=== PATIENT | male | born 1975 | race Caucasian/White ===

== ENCOUNTER 2020-02-29 11:40 | Day surgery (SDC) | payer OTHER, SELFPAY ==
[2020-02-28 09:53] VITALS: BMI 21.9
--- NOTE | 2020-02-28 10:01 | P.CONAN_ITS ---
HPI - Anesthesia Eval Consult details Narrative: 44yo M for [facility] Past Medical History Medical History Anxiety Vertigo Surgical History Surgical History History of arthroscopy of both knees History of elbow surgery Social History Social History Are you a primary customer care coordinator to a significant other at home: No Do you presently have visiting nurse or other home services: No Smoking Status: Current every day smoker Smoked in Last 30 Days: Yes Patient Interested in Nicotine Replacement: No Patient Given Instructions on How to Stop Smoking: No Second Hand Smoke Exposure: No Use of substances other than those prescribed or required for medical reasons: Yes Substance Use Frequency: Occasionally Have you been hit, kicked, punched, or otherwise hurt by someone within the past year? If so, by whom?: No Advance Directives: No Advance Directives Information Provided: Yes Advance Directives on File: No Recently lost weight without trying: No Meds Allergies Allergy/AdvReac Type Severity Reaction Status Date / Time No Known Allergies Allergy Unverified 02/09/20 19:21 [No Known Allergies*] Exam Exam Date and Time: February 28, 2020 1001 Height,Weight and Vital Signs: Height 5 ft 7 in Weight 63.503 kg
--- NOTE | 2020-02-28 10:04 | P.CONAN_ITS ---
Documented by User: Vicky Wolf 02/28/20 10:06 [facility] Past Medical History Medical History Anxiety Vertigo Surgical History Surgical History History of arthroscopy of both knees History of elbow surgery Social History Social History Are you a primary managed care provider to a significant other at home: No Do you presently have visiting nurse or other home services: No Smoking Status: Current every day smoker Smoked in Last 30 Days: Yes Patient Interested in Nicotine Replacement: No Patient Given Instructions on How to Stop Smoking: No Second Hand Smoke Exposure: No Use of substances other than those prescribed or required for medical reasons: Yes Substance Use Frequency: Occasionally Have you been hit, kicked, punched, or otherwise hurt by someone within the past year? If so, by whom?: No Advance Directives: No Advance Directives Information Provided: Yes Advance Directives on File: No Recently lost weight without trying: No Meds Allergies Allergy/AdvReac Type Severity Reaction Status Date / Time No Known Allergies Allergy Verified 02/29/20 11:47 [No Known Allergies*] Exam Exam Date and Time: February 28, 2020 1004 Height,Weight and Vital Signs: Height 5 ft 7 in Weight 63.503 kg Documented by User: Rosamaria Rodriguez 02/29/20 12:34 [facility] Past Medical History Medical History Anxiety Vertigo Surgical History Surgical History History of arthroscopy of both knees History of elbow surgery Social History Social History Are you a primary managed care provider to a significant other at home: No Do you presently have visiting nurse or other home services: No Smoking Status: Current every day smoker Smoked in Last 30 Days: Yes Patient Interested in Nicotine Replacement: No Patient Given Instructions on How to Stop Smoking: No Second Hand Smoke Exposure: No Use of substances other than those prescribed or required for medical reasons: Yes Substance Use Frequency: Occasionally Have you been hit, kicked, punched, or otherwise hurt by someone within the past year? If so, by whom?: No Advance Directives: No Advance Directives Information Provided: Yes Advance Directives on File: No Recently lost weight without trying: No Meds Allergies Allergy/AdvReac Type Severity Reaction Status Date / Time No Known Allergies Allergy Verified 02/29/20 11:47 [No Known Allergies*] Exam Airway Mallampati Class: II TM Dist: >3cm Neck ROM: Full Heart: rrr Lungs: cta Assessment and Plan Assessment Anesthesia Assessment: Anesthesia Plan Discussed and Smoking Cess. Discussed Final Anesthetic Review NPO: Yes ASA Class: II Final Preanesthetic Review: No Changes in Pt Med Stat, Meds & Allergies Reviewed, Consent Obtained/Reviewed, Med/Surg/Anes Hx Reviewed, Last Cigarette (If Appl.) and Anes Risks/Benef Reviewed Patient Risk: Low Procedure Risk: Low Assessment/Block/Sedation in SS: Assess/Block/Sedation-SS Anesthetic Plan Anesthetic Plan: GA and Regional Block Disposition: Standard PACU
[2020-02-29] VITALS (8 sets, daily range): BP systolic 137–168; BP diastolic 86–101; PULSE 63–96; RESP 16–18; TEMP 36.2–36.7; O2SAT 96–98
--- NOTE | 2020-02-29 12:16 | MHC.SHP ---
Pre-Procedural Eval Section A The patient is an INPATIENT: No Changes since office visit: No Cold of Flu in the past 2 weeks, No New Medical Problems, No Changes in Medication and No Patient answered all questions The History & Physical has been completed within 30 days and I have reviewed it.: Yes Section B Chief Complaint: RIGHT ELBOW FX Allergies: Allergies Allergy/AdvReac Type Severity Reaction Status Date / Time No Known Allergies Allergy Verified 02/29/20 11:47 [No Known Allergies*] Plan Patient has been examined and remains a candidate for the planned procedure
--- NOTE | 2020-02-29 12:23 | FL_ITS ---
EXAMINATION: XR FLUOROSCOPY CLINICAL INFORMATION: Right olecranon fracture. COMPARISON: Radiograph dated 02/16/2020 TECHNIQUE: AP and lateral spot images of the right elbow were submitted from the ORIF performed by Dr. Everett. FLUOROSCOPY TIME: 0.6 minutes DOSE AREA PRODUCT: 0.0381 mGy-m2 (milligray-meter squared) FINDINGS/IMPRESSION: The olecranon fracture fragment has been successfully reduced. 2 K wires and a cerclage wire are present, holding the fracture fragment in place. 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
[2020-02-29] MEDS: Lactated Ringers 1,000 ML 100 ML IVCONT (12:34)
[2020-02-29] MEDS: ceFAZolin Sodium/Dextrose,Iso 2 GM/50 ML PIGGYBACK IV (12:35)
--- NOTE | 2020-02-29 14:30 | PM.OP ---
Brief Operative Note Date of procedure: 02/29/20 Pre-op diagnosis: right olecranon fracture Post-op diagnosis: same Procedure: orif right olecranon Implants: .65 k wire x 2 and .68 tension band Surgeon: Olegario Everett MD Anesthesia: GETA, MAC and regional Estimated blood loss (mL): 10 Tourniquet time (min): 40 IV fluids (mL): 800 Pathology: none sent Condition: stable
[2020-02-29] MEDS: Acetaminophen 325 MG TABLET 650 MG PO (14:52)
--- NOTE | 2020-02-29 21:57 | OP_ITS ---
SURGEON: Olegario Everett MD INDICATIONS: This is a 44-year-old gentleman, who sustained a displaced olecranon fracture and was consented to undergo operative fixation. PREOPERATIVE DIAGNOSIS: Right olecranon fracture. POSTOPERATIVE DIAGNOSIS: Right olecranon fracture. PROCEDURE PERFORMED: ORIF, right olecranon. ESTIMATED BLOOD LOSS: 10 mL. COMPLICATIONS: None. ANESTHESIA: MAC and regional. ASSISTANTS: None. SPECIMENS: IMPLANTS: 0.65 K-wire and 0.68 tension band. TOURNIQUET TIME: 40 minutes. FLUIDS: 800. PROCEDURE IN DETAIL: The patient was brought to the operating room and placed in the supine position. He was prepped and draped in standard sterile fashion and a tourniquet was insufflated to 250 mmHg. A time-out was called to identify proper site, proper procedure, proper surgeon prior to this, and IV antibiotics per weight was administered. I began by making a midline incision over the posterior aspect of the olecranon and ulna. Sharp dissection was taken down to bone and 2 full-thickness flaps were developed. The fracture was displaced significantly and I cleaned up the fracture fragments using a curette and rongeur and irrigation. Care was taken to avoid the ulnar nerve. Once this was done, I took 2 sharp tenaculums and reduced the fracture. Biplanar fluoroscopy was confirmed this. I then placed two 0.68 tension wires from posterior to anterior and proximal to distal across the fracture site. With this, we had about approximately 45 degree angle and I was happy with the appearance of this. On biplanar fluoroscopy, they were interosseous at all times. I then drilled distally into the ulnar shaft, a transverse tunnel, and passed my tension wire through that. I then wrapped the tension wire around the proximal K-wires and tightened it on both ends. This compressed the fracture and I was able to flex and extend the elbow without any fracture displacement. The extraneous metal was removed and curved into the soft tissue. Once this was done, I irrigated copiously and closed with absorbable suture and renetta. The patient was placed into a sterile dressing, extubated, and brought to recovery room in stable condition. There were no known complications. MD MANUEL Khan/SASHA / [id number]
== END 2020-02-29 16:05 | disposition home or self-care (01) ==
PROVIDERS: Orthopaedic Surgery; PCP Hospitalist; Visit Provider Internal Medicine
PROC: (CPT 24685; principal; 2020-02-29 12:00)
DX: S52.021A Displaced fracture of olecranon process without intraarticular extension of right ulna, initial encounter for closed fracture (principal); W17.89XA Other fall from one level to another, initial encounter; Y93.9 Activity, unspecified; Y92.9 Unspecified place or not applicable; Y99.9 Unspecified external cause status
CPT/HCPCS: 24685; C1713; J0690; J1100; J2250; J2405; J3010

== ENCOUNTER 2020-03-13 13:09 | Outpatient (REF) | payer OTHER, SELFPAY ==
--- NOTE | 2020-03-13 14:01 | XR_ITS ---
EXAMINATION: XR ELBOW, RIGHT CLINICAL INFORMATION: Fracture COMPARISON: Previous x-rays most recent 02/29/2020 TECHNIQUE: Two views of the right elbow. FINDINGS: There is ORIF of the olecranon fracture with anatomic alignment. There arthritis at the humeral radial head articulation. There are osteophytes along the posterior olecranon. There is no joint effusion. There are posterior skin renetta. IMPRESSION: ORIF of the olecranon fracture with anatomic alignment. Arthritis at the elbow joint.
== END 2020-03-13 13:10 | disposition home or self-care (01) ==
LOC: HO.XRAY 13:09
PROVIDERS: Visit Provider Physician Assistant
DX: S52.023D Displaced fracture of olecranon process without intraarticular extension of unspecified ulna, subsequent encounter for closed fracture with routine healing (principal)
CPT/HCPCS: 73070; 99212

== ENCOUNTER 2020-04-02 13:20 | Outpatient (REF) | payer OTHER, SELFPAY ==
--- NOTE | 2020-04-02 13:56 | XR_ITS ---
EXAMINATION: XR ELBOW, RIGHT CLINICAL INFORMATION: Displaced fracture of the olecranon COMPARISON: 12/12/2019 TECHNIQUE: AP, lateral, and oblique views of the right elbow. FINDINGS: There is a cerclage wire with 2 K wires transfixing the olecranon. Alignment is anatomic. No acute fracture is seen. Corticated ossification adjacent to the radial head. Osteophyte formation along the elbow. Normal joint effusion. Tiny radiopaque densities are seen in the dorsal superficial soft tissues of the elbow. XR/XR elbow RT min 3V IMPRESSION: Intact hardware at the olecranon. No fracture line seen. Appropriate alignment. Arthritic changes.
== END 2020-04-02 13:21 | disposition home or self-care (01) ==
LOC: HO.HOSX 13:20
PROVIDERS: Visit Provider Physician Assistant
DX: S52.023D Displaced fracture of olecranon process without intraarticular extension of unspecified ulna, subsequent encounter for closed fracture with routine healing (principal)
CPT/HCPCS: 73080; 99212

== ENCOUNTER 2020-04-25 09:00 | Outpatient (RCR) | payer OTHER, SELFPAY | END 2020-05-17 08:49 | disposition home or self-care (01) | LOC: HO.OT 09:00 | PROVIDERS: Visit Provider Physician Assistant | DX: S52.023D Displaced fracture of olecranon process without intraarticular extension of unspecified ulna, subsequent encounter for closed fracture with routine healing (principal) | CPT/HCPCS: 29105; 97110; 97140; 97165; 97760 ==

== ENCOUNTER 2020-04-27 09:30 | Outpatient (REF) | payer OTHER, SELFPAY ==
--- NOTE | 2020-04-27 09:42 | XR_ITS ---
EXAMINATION: XR ELBOW, RIGHT CLINICAL INFORMATION: Follow-up olecranon fracture. COMPARISON: Prior radiographs, most recently 04/02/2020. TECHNIQUE: AP and lateral views of the right elbow. FINDINGS: A cerclage wire and 2 orthopedic pins transfix a known right olecranon fracture, which is in stable alignment. A persistent fracture line is seen on the lateral view. Enthesophytes are again seen of the radial head. There is no joint effusion. Tiny punctate foreign bodies are again seen in the posterior soft tissues. XR/XR elbow RT 2V IMPRESSION: There is stable alignment of a right olecranon fracture. No hardware failure or loosening is seen. There is no right elbow joint effusion.
== END 2020-04-27 09:31 | disposition home or self-care (01) ==
LOC: HO.HOSX 09:30
PROVIDERS: Visit Provider Orthopaedic Surgery
DX: S52.023D Displaced fracture of olecranon process without intraarticular extension of unspecified ulna, subsequent encounter for closed fracture with routine healing (principal)
CPT/HCPCS: 73070; 99212

== ENCOUNTER 2020-05-01 12:07 | Day surgery (SDC) | payer OTHER, SELFPAY ==
[2020-05-01] VITALS (12 sets, daily range): BP systolic 142–184; BP diastolic 89–109; PULSE 67–81; RESP 20; TEMP 36.8–37; O2SAT 96–100; BMI 25.0
--- NOTE | 2020-05-01 11:43 | MHC.SHP ---
Pre-Procedural Eval Section A The patient is an INPATIENT: No Changes since office visit: Yes Cold of Flu in the past 2 weeks, Yes New Medical Problems and Yes Changes in Medication The History & Physical has been completed within 30 days and I have reviewed it.: Yes Section B Chief Complaint: presence of functional implant Allergies: Allergies Allergy/AdvReac Type Severity Reaction Status Date / Time No Known Allergies Allergy Verified 04/27/20 10:40 [No Known Allergies*] Plan Patient has been examined and remains a candidate for the planned procedure
[2020-05-01] MEDS: ceFAZolin Sodium/Dextrose,Iso 2 GM/50 ML PIGGYBACK IV (12:54)
--- NOTE | 2020-05-01 13:23 | FL_ITS ---
EXAMINATION: XR FLUOROSCOPY WITH IMAGES CLINICAL INFORMATION: Hardware removal right elbow. COMPARISON: Right elbow 04/27/2020 TECHNIQUE: Fluoroscopy performed by Marguerite alcazar Fluoroscopy time: 1.37) minutes DAP: 2349 mGycm2 Images: 1 FINDINGS: The solitary nail and cerclage wire through the olecranon process has been removed. The fracture through the olecranon has healed. A small loose body anterior to radial head is unchanged. FL/FL guidance in OR IMPRESSION: Hardware through the olecranon process has been removed. The olecranon fracture has healed.
--- NOTE | 2020-05-01 13:30 | P.CONAN_ITS ---
[facility] Past Medical History Medical History Anxiety Vertigo Surgical History Surgical History History of arthroscopy of both knees History of elbow surgery (~03/10/20) Social History Social History Smoking Status: Current every day smoker Second Hand Smoke Exposure: No Use of substances other than those prescribed or required for medical reasons: No Advance Directives: No Advance Directives Information Provided: Yes Meds Allergies Allergy/AdvReac Type Severity Reaction Status Date / Time No Known Allergies Allergy Verified 04/27/20 10:40 [No Known Allergies*] Home Medications Medication Instructions Recorded Confirmed Type No Known Home Meds 04/27/20 04/27/20 History Exam Exam Date and Time: May 01, 2020 1330 Height,Weight and Vital Signs: Height 5 ft 7 in Weight 72.575 kg Airway Mallampati Class: II TM Dist: >3cm Neck ROM: Full Denture: Upper and Lower Loose/Missing/Broken Teeth: No Heart: rrr Lungs: nl Other: ao Assessment and Plan Assessment Anesthesia Assessment: Anesthesia Plan Discussed and Chart Reviewed Final Anesthetic Review NPO: Yes ASA Class: II Final Preanesthetic Review: No Changes in Pt Med Stat, Meds/Allgs Chart Reviewed, Consent Obtained/Reviewed and Anes Risks/Benef Reviewed Patient Risk: Low Procedure Risk: Low Anesthetic Plan Anesthetic Plan: GA Disposition: Standard PACU
--- NOTE | 2020-05-01 14:22 | PM.OP ---
Brief Operative Note Date of Service: 05/01/20 Pre-op diagnosis: retained orthopaedic hardware right elbow Post-op diagnosis: same Procedure: removal of hardware right elbow Implants: none Surgeon: Olegario Everett MD Anesthesia: GLMA and local Estimated blood loss (mL): 10 Tourniquet time (min): 0 IV fluids (mL): 500 Urine output (mL): 0 Pathology: none sent Condition: stable Disposition: PACU
[2020-05-01] MEDS: HYDROmorphone HCl 0.5 MG/0.5 ML SYRINGE 0.25 MG IVPUSH ×3 (14:45→15:11)
[2020-05-01] MEDS: Acetaminophen 325 MG TABLET 650 MG PO (14:46)
--- NOTE | 2020-05-01 16:18 | PC.NURSE ---
wearing sling right, moves fingers, cms wnl, only c/o itchy nose
--- NOTE | 2020-05-02 11:58 | HO.POSTANES ---
Post Anesthesia Evaluation Post Anesthesia Evaluation Anesthesia: General LMA Mental Status: Awake Pain Control: Satisfactory Nausea/Vomiting: None Hydration: Adequate Anesthesia-Related Issues: No Anes. Related Issues
--- NOTE | 2020-05-08 10:23 | OP_ITS ---
SURGEON: Olegario Everett MD INDICATIONS: This is a 44-year-old gentleman with orthopedic elbow hardware, consented to undergo removal. PREOPERATIVE DIAGNOSIS: Retained orthopedic hardware, right elbow. POSTOPERATIVE DIAGNOSIS: Retained orthopedic hardware, right elbow. PROCEDURE PERFORMED: Removal of hardware, right elbow. ESTIMATED BLOOD LOSS: 10 mL. COMPLICATIONS: None. ANESTHESIA: General and local. ASSISTANTS: SPECIMENS: FLUIDS: 500. PROCEDURE IN DETAIL: The patient was brought to the operating room, placed supine on the operative table and prepped and draped in standard sterile fashion. Time-out was called to identify proper site, proper procedure, proper surgeon. IV antibiotics per weight were administered. I began by making approximately a 3 cm incision over the prior incision. The hardware was immediately visible. I then used to untwist the wire and pulled this out. Prior to this, both pins were removed. This was done so without difficulty and postoperative radiographs demonstrated absence of hardware. I then irrigated copiously and closed with absorbable suture and skin glue. The patient was placed in sterile dressing and extubated and brought to recovery room. There were no known complications. LABORER PRESTRESSED CONCRETE: None. MD MANUEL Khan/SASHA / [id number]
== END 2020-05-01 16:10 | disposition home or self-care (01) ==
PROVIDERS: Visit Provider Orthopaedic Surgery
PROC: (CPT 20670; principal; 2020-05-01 14:00)
DX: Z47.2 Encounter for removal of internal fixation device (principal); Z87.81 Personal history of (healed) traumatic fracture; Z96.9 Presence of functional implant, unspecified; F41.9 Anxiety disorder, unspecified; R42 Dizziness and giddiness; F17.210 Nicotine dependence, cigarettes, uncomplicated
CPT/HCPCS: 20670; J0690; J1170; J2250; J2405; J3010

== ENCOUNTER → 2020-05-11 10:16 | Outpatient (BNVA) | payer OTHER, SELFPAY | PROVIDERS: Visit Provider Orthopaedic Surgery | DX: S52.023D Displaced fracture of olecranon process without intraarticular extension of unspecified ulna, subsequent encounter for closed fracture with routine healing (principal); X58.XXXD Exposure to other specified factors, subsequent encounter | CPT/HCPCS: 99212 ==